=== PATIENT | male | born 1965 | race Caucasian/White ===

== ENCOUNTER 2016-10-14 15:39 | Emergency (ER) | payer OTHER ==
[2016-10-14 15:47] VITALS: BP 144/84; BMI 25.4
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
== END 2016-10-14 20:06 | disposition home or self-care (01) ==
LOC: ER 15:51
DX: Z04.3 Encounter for examination and observation following other accident (principal); V89.2XXA Person injured in unspecified motor-vehicle accident, traffic, initial encounter; R51 Headache
CPT/HCPCS: 70450; 72100; 72125; 99283

== ENCOUNTER 2016-11-30 10:33 | Emergency (ER) | payer SELFPAY ==
[2016-11-30 10:38] VITALS: BP 148/88; BMI 25.7
[2016-11-30] MEDS ORDERED: AUGMENTIN 500 MG/125 MG TAB PO ONE ×2 (11:13→11:17)
[2016-11-30] MEDS ORDERED: ANTIVERT TAB 25 MG PO ONE (11:13)
[2016-11-30] MEDS ORDERED: ZyrTEC TAB 10 MG PO STA (11:14)
[2016-11-30] MEDS ORDERED: MOTRIN TAB 800 MG PO STA (11:15)
[2016-11-30] MEDS ORDERED: ANTIVERT TAB 25 MG ONE (11:17)
[2016-11-30] MEDS ORDERED: MOTRIN TAB 800 MG PO ONE (11:17)
[2016-11-30] MEDS ORDERED: ZyrTEC TAB 10 MG ONE (11:17)
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
[2016-11-30] MEDS ORDERED: ZOFRAN INJ 4 MG VIAL IVP ONE (11:28)
[2016-11-30] MEDS ORDERED: DEMEROL INJ IVP ONE (11:28)
[2016-11-30 11:30] LABS: BASOPHILS % (AUTO) 0.5 % (0.2-1.0); EOSINOPHILS # (AUTO) 0.1 x10^3/uL (0.0-0.2); EOSINOPHILS % (AUTO) 1.4 % (0.9-2.9); HEMATOCRIT 45.5 % (42.0-54.0); LYMPHOCYTES # (AUTO) 0.9 X10^3/uL (1.3-2.9); LYMPHOCYTES % (AUTO) 13.1 % (21.0-51.0); MEAN CORPUSCULAR HEMOGLOBIN 30.6 pg (27.0-34.0); MEAN CORPUSCULAR HGB CONC 35.1 g/dL (33.0-35.0); MEAN CORPUSCULAR VOLUME 87.2 fL (80.0-100.0); MEAN PLATELET VOLUME 9.1 fL (7.4-11.0); MONOCYTES # (AUTO) 0.5 x10^3/uL (0.3-0.8); MONOCYTES % (AUTO) 7.8 % (0.0-13.0); NEUTROPHILS # (AUTO) 5.2 x10^3/uL (2.2-4.8); NEUTROPHILS % (AUTO) 77.2 % (42.0-75.0); PLATELET COUNT 193 X10^3/uL (150.0-450.0); RED BLOOD COUNT 5.22 X10^6/uL (4.7-6.0); RED CELL DISTRIBUTION WIDTH 13.1 % (11.6-16.5); WHITE BLOOD COUNT 6.8 X10^3/uL (3.6-10.0)
[2016-11-30 11:50] LABS: ALANINE AMINOTRANSFERASE 33 Units/L (12-78); ALBUMIN 3.8 g/dL (3.4-5.0); ALKALINE PHOSPHATASE 63 Units/L (46-116); ASPARTATE AMINO TRANSFERASE 20 Units/L (15-37); BLOOD UREA NITROGEN 12 mg/dL (7-18); CALCIUM 8.8 mg/dL (8.5-10.1); CARBON DIOXIDE 26.2 mmol/L (21-32); CHLORIDE 108 mmol/L (98-107); CREATININE 0.98 mg/dL (0.70-1.30); GLUCOSE 101 mg/dL (65-99); SODIUM 141 mmol/L (136-145); TOTAL PROTEIN 6.8 g/dL (6.4-8.2); eGFR BLACK RACES > 60 (>60); eGFR NON BLACK RACES > 60 (>60)
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
== END 2016-11-30 14:24 | disposition home or self-care (01) ==
LOC: ER 10:41
DX: R42 Dizziness and giddiness (principal); R04.0 Epistaxis; N28.89 Other specified disorders of kidney and ureter; K57.90 Diverticulosis of intestine, part unspecified, without perforation or abscess without bleeding; N28.1 Cyst of kidney, acquired
CPT/HCPCS: 36415; 74176; 80053; 85025; 99282; 99283